=== PATIENT | male | born 1955 | race Hispanic/Latino ===

== ENCOUNTER 2017-12-19 10:27 | Inpatient (IN) | payer OTHER, SELFPAY ==
[~2017-12-19] VITALS: Ht 165.1 cm; Wt 73.3 kg
[2017-12-19 11:20] LABS: BASOPHILS % (AUTO) 0.4 % (0.0-5.0); HEMATOCRIT 31.9 % (42-54); MEAN CORPUSCULAR HEMOGLOBIN 35.7 pg (27.0-33.0); MEAN CORPUSCULAR HGB CONC 36.8 g/dL (32.0-36.0); MEAN CORPUSCULAR VOLUME 97.1 fL (79-99); MONOCYTES % (AUTO) 11.6 % (3.0-13.0); NUCLEATED RED BLOOD CELLS 0.1 % (0.0-0.19); PLATELET COUNT (AUTO) 128 K/uL (130-400); RED BLOOD CELL COUNT(AUTO) 3.29 MIL/uL (4.50-6.20); RED CELL DISTRIBUTION WIDTH 14.4 % (11.0-15.5)
[2017-12-19 11:31] LABS: CREATININE 1.7 mg/dL (0.5-1.5); POTASSIUM 3.9 mmol/L (3.5-5.1)
[2017-12-19 11:36] LABS: ALBUMIN 1.6 g/dL (3.5-5.0); BILIRUBIN,TOTAL 2.6 mg/dL (0.2-1.0); TOTAL PROTEIN, SERUM 6.9 g/dL (6.0-8.3)
[2017-12-19 12:01] LABS: INR 1.17 (0.85-1.15); PARTIAL THROMBOPLASTIN TIME 28.8 SEC (26.3-35.5); PROTHROMBIN TIME 11.9 SEC (9.6-11.6)
[2017-12-19] MEDS ORDERED: HYDRALAZINE HCL 20 MG/ML VIAL IV PRN (13:30)
[2017-12-19] MEDS ORDERED: ONDANSETRON HCL 4 MG/2 ML VIAL IV PRN (13:30)
[2017-12-19] MEDS: SPIRONOLACTONE 25 MG TAB PO SCH ×2 (13:30→20:28)
[2017-12-19] MEDS ORDERED: GUAIFENESIN-DM 200/20 MG 10 ML PO PRN (13:30)
[2017-12-19] MEDS: FUROSEMIDE 40 MG TABLET PO SCH ×2 (13:30→20:28)
[2017-12-19] MEDS ORDERED: ONDANSETRON HCL MDV 20ML 2 MG/ML VIAL IVP PRN (13:45)
[2017-12-19] MEDS ORDERED: MORPHINE SULFATE 4 MG/1ML SYG IVP PRN (13:45)
[2017-12-19] MEDS ORDERED: LACT10SO9 PO (15:43)
[2017-12-19] MEDS ORDERED: FURO40TA7 PO (15:43)
[2017-12-19] MEDS ORDERED: SPIR100T5 PO (15:43)
[2017-12-19 16:17] VITALS: BP 115/67
[2017-12-19] MEDS: LEVOFLOXACIN 500 MG/D5W 100 ML 100 ML IV SCH (17:14)
[2017-12-19 18:07] LABS: APPEARANCE BODY FLUID SLIGHTLY CLOUDY (CLEAR); SPECIMENTYPE,BODY FLUID ASCITES
[2017-12-19 18:08] LABS: BODY FLUID RBC 1680 /cu. mm.; BODY FLUID WBC 64 /cu. mm.; COLOR,BODY FLUID LT YELLOW (LT YELLOW); TOTAL VOLUME,BODY FLUID 90 mL
[2017-12-19 18:21] LABS: BF LYMPHOCYTE 88 %
[2017-12-19] MEDS: ALBUTEROL SULFATE 0.083% 2.5 MG/3 ML INH IH SCH ×2 (19:52→23:39)
[2017-12-19 20:00] VITALS: BP 100/62
[2017-12-19] MEDS: ALBUMIN (HUMAN) 25% 100 ML IV SCH (20:27)
[2017-12-19] MEDS: LACTULOSE 20 GM/30 ML UDCUP PO SCH (20:27)
[2017-12-19 23:45] VITALS: BP 96/54
[2017-12-20 00:25] LABS: APPEARANCE,URINE Clear (CLEAR); BILIRUBIN,URINE Negative (NEGATIVE); COLOR,URINE Dark Yellow (YELLOW); GLUCOSE, URINE (UA) Negative (NEGATIVE); KETONES,URINE Negative (NEGATIVE); LEUKOCYTE ESTERASE ,URINE Trace (NEGATIVE); NITRATE,URINE Negative (NEGATIVE); OCCULT BLOOD,URINE Large (NEGATIVE); PROTEIN,URINE Negative (NEGATIVE)
[2017-12-20] MEDS: PNEUMOCOCCAL VACCINE POLYVALENT 0.5 ML/VIAL [PPV] IM SCH (00:30)
[2017-12-20 00:39] LABS: BACTERIA,URINE None Seen /HPF (None Seen); MUCUS,URINE Rare LPF (None Seen); SQUAMOUS EPITHELIAL CELL,UR Rare /HPF (0-2); WBC,URINE 0-1 /HPF (0-1)
[2017-12-20 04:00] VITALS: BP 103/66
[2017-12-20 06:06] LABS: HEMATOCRIT 30.1 % (42-54); MEAN CORPUSCULAR HEMOGLOBIN 34.3 pg (27.0-33.0); MEAN CORPUSCULAR VOLUME 98.1 fL (79-99); PLATELET COUNT (AUTO) 113 K/uL (130-400); RED BLOOD CELL COUNT(AUTO) 3.07 MIL/uL (4.50-6.20); RED CELL DISTRIBUTION WIDTH 14.5 % (11.0-15.5); WHITE BLOOD COUNT (AUTO) 5.1 K/uL (4.8-10.8)
[2017-12-20] MEDS: ALBUTEROL SULFATE 0.083% 2.5 MG/3 ML INH IH SCH ×4 (06:10→23:47)
[2017-12-20 06:13] LABS: HEMOGLOBIN A1C 5.3 % (4.0-6.0)
[2017-12-20 06:33] LABS: ALBUMIN 1.8 g/dL (3.5-5.0); BILIRUBIN,DIRECT 0.5 mg/dL (0.0-0.3); BILIRUBIN,TOTAL 2.2 mg/dL (0.2-1.0); CREATININE 1.6 mg/dL (0.5-1.5); MAGNESIUM 1.9 mg/dL (1.80-2.40); POTASSIUM 4.3 mmol/L (3.5-5.1); TOTAL PROTEIN, SERUM 6.2 g/dL (6.0-8.3)
[2017-12-20 08:00] VITALS: BP 92/53
[2017-12-20] MEDS: PANTOPRAZOLE SODIUM 40 MG TABLET.DR PO SCH (09:39)
[2017-12-20] MEDS: FUROSEMIDE 40 MG TABLET PO SCH ×2 (09:39→20:29)
[2017-12-20] MEDS: LACTULOSE 20 GM/30 ML UDCUP PO SCH ×2 (09:39→20:28)
[2017-12-20] MEDS: SPIRONOLACTONE 25 MG TAB PO SCH ×2 (09:39→20:28)
[2017-12-20 11:00] VITALS: BP 90/59
[2017-12-20] MEDS: TRAMADOL HCL 50 MG TABLET PO PRN (11:23)
[2017-12-20] MEDS: ALBUMIN (HUMAN) 25% 100 ML IV SCH (13:30)
[2017-12-20] MEDS: LEVOFLOXACIN 500 MG/D5W 100 ML 100 ML IV SCH ×2 (14:52→19:42)
[2017-12-20 16:00] VITALS: BP 93/57
[2017-12-20 20:00] VITALS: BP 100/58
[2017-12-21] VITALS: BP 102/64
[2017-12-21] MEDS: PNEUMOCOCCAL VACCINE POLYVALENT 0.5 ML/VIAL [PPV] IM SCH (00:30)
[2017-12-21 03:54] VITALS: BP 102/68
[2017-12-21 04:59] LABS: HEMATOCRIT 29.6 % (42-54); MEAN CORPUSCULAR HEMOGLOBIN 36.3 pg (27.0-33.0); MEAN CORPUSCULAR VOLUME 98.1 fL (79-99); PLATELET COUNT (AUTO) 111 K/uL (130-400); RED BLOOD CELL COUNT(AUTO) 3.02 MIL/uL (4.50-6.20); RED CELL DISTRIBUTION WIDTH 14.1 % (11.0-15.5); WHITE BLOOD COUNT (AUTO) 6.2 K/uL (4.8-10.8)
[2017-12-21 05:07] LABS: CREATININE 1.6 mg/dL (0.5-1.5)
[2017-12-21] MEDS: ALBUTEROL SULFATE 0.083% 2.5 MG/3 ML INH IH SCH ×3 (06:41→18:43)
[2017-12-21 08:00] VITALS: BP_SYST 129; BP_SYST 95; BP_DIAS 59; BP_DIAS 72
[2017-12-21] MEDS: PANTOPRAZOLE SODIUM 40 MG TABLET.DR PO SCH (09:10)
[2017-12-21] MEDS: LACTULOSE 20 GM/30 ML UDCUP PO SCH (09:10)
[2017-12-21] MEDS: SPIRONOLACTONE 25 MG TAB PO SCH (09:10)
[2017-12-21] MEDS ORDERED: LACTULOSE 20 GM/30 ML UDCUP PO PRN (11:45)
[2017-12-21] MEDS ORDERED: LACTULOSE 20 GM/30 ML UDCUP PO SCH (11:45)
[2017-12-21 11:47] VITALS: BP 85/53
[2017-12-21] MEDS: ALBUMIN (HUMAN) 25% 100 ML IV SCH (12:44)
[2017-12-21] MEDS: TRAMADOL HCL 50 MG TABLET PO PRN (12:49)
[2017-12-21] MEDS: FUROSEMIDE 40 MG TABLET PO SCH (12:50)
[2017-12-21] MEDS ORDERED: LEVO500T2 PO (13:20)
[2017-12-21] MEDS ORDERED: FURO40TA7 PO (13:20)
[2017-12-21] MEDS ORDERED: TRAM50TA4 PO (13:20)
[2017-12-21 16:00] VITALS: BP 99/60
== END 2017-12-21 19:30 | disposition home or self-care (01) | DRG 432 ==
LOC: EDH 10:27 → EDHIP 10:28 → OBSVTOIN 10:28 → 3CH 15:07
PROVIDERS: ADMIT Internal Medicine Nephrology; ATTEND Internal Medicine Nephrology
PROC: 0W9G3ZZ Drainage of Peritoneal Cavity, Percutaneous Approach (ICD-10-PCS; principal; 2017-12-19)
DX: K70.31 Alcoholic cirrhosis of liver with ascites (principal); J18.9 Pneumonia, unspecified organism; J96.01 Acute respiratory failure with hypoxia; E43 Unspecified severe protein-calorie malnutrition; N18.3 Chronic kidney disease, stage 3 (moderate); D69.59 Other secondary thrombocytopenia; R73.9 Hyperglycemia, unspecified; D63.8 Anemia in other chronic diseases classified elsewhere; Z68.26 Body mass index [BMI] 26.0-26.9, adult
CPT/HCPCS: 36415; 49083; 71045; 80048; 80053; 80076; 81001; 82140; 82550; 83036; 83540; 83550; 83690; 83735; 84484; 85025; 85027; 85610; 85730; 87040; 87071; 87205; 87633; 89051; 93005; 94640; 94664; J1956; P9046

== ENCOUNTER 2017-12-27 13:51 | Emergency (ER) | payer OTHER, SELFPAY ==
[~2017-12-27 13:51] MED LIST: FURO40TA7 PO; LACT10SO9 PO; LEVO500T2 PO; SPIR100T5 PO; TRAM50TA4 PO
[2017-12-27 14:13] LABS: BASOPHILS % (AUTO) 0.9 % (0.0-5.0); HEMATOCRIT 34.1 % (42-54); MEAN CORPUSCULAR HEMOGLOBIN 34.2 pg (27.0-33.0); MEAN CORPUSCULAR HGB CONC 34.8 g/dL (32.0-36.0); MEAN CORPUSCULAR VOLUME 98.4 fL (79-99); MONOCYTES % (AUTO) 12.6 % (3.0-13.0); NEUTROPHILS % (AUTO) 68.5 % (40.0-77.0); NUCLEATED RED BLOOD CELLS 0.1 % (0.0-0.19); PLATELET COUNT (AUTO) 141 K/uL (130-400); RED BLOOD CELL COUNT(AUTO) 3.46 MIL/uL (4.50-6.20); RED CELL DISTRIBUTION WIDTH 14.5 % (11.0-15.5); WHITE BLOOD COUNT (AUTO) 6.9 K/uL (4.8-10.8)
[2017-12-27 14:28] LABS: CREATININE 1.6 mg/dL (0.5-1.5); POTASSIUM 3.8 mmol/L (3.5-5.1)
[2017-12-27 14:44] LABS: INR 1.15 (0.85-1.15); PARTIAL THROMBOPLASTIN TIME 30.6 SEC (26.3-35.5)
[2017-12-27 14:45] LABS: ALBUMIN 1.9 g/dL (3.5-5.0); BILIRUBIN,TOTAL 1.4 mg/dL (0.2-1.0); TOTAL PROTEIN, SERUM 7.2 g/dL (6.0-8.3)
[2017-12-27] MEDS ORDERED: ALBUMIN (HUMAN) 25% 200 ML IV ONE ×2 (18:16→18:30)
== END 2017-12-27 20:34 | disposition home or self-care (01) ==
LOC: EDH 13:51
DX: R18.8 Other ascites (principal); K74.60 Unspecified cirrhosis of liver; Z90.49 Acquired absence of other specified parts of digestive tract; Z98.890 Other specified postprocedural states
CPT/HCPCS: 36415; 49083; 80053; 85025; 85610; 85730; 96365; 96366; 99285; P9046

== ENCOUNTER 2018-01-03 11:33 | Emergency (ER) | payer OTHER, SELFPAY ==
[2018-01-03 12:34] LABS: BASOPHILS % (AUTO) 1.4 % (0.0-5.0); EOSINOPHILS % (AUTO) 6.9 % (0.0-8.0); HEMATOCRIT 29.8 % (42-54); LYMPHOCYTES % (AUTO) 17.4 % (21.0-51.0); MEAN CORPUSCULAR HEMOGLOBIN 34.4 pg (27.0-33.0); MEAN CORPUSCULAR HGB CONC 35.2 g/dL (32.0-36.0); MEAN CORPUSCULAR VOLUME 97.8 fL (79-99); MONOCYTES % (AUTO) 13.6 % (3.0-13.0); NEUTROPHILS % (AUTO) 60.7 % (40.0-77.0); NUCLEATED RED BLOOD CELLS 0.1 % (0.0-0.19); PLATELET COUNT (AUTO) 113 K/uL (130-400); RED BLOOD CELL COUNT(AUTO) 3.05 MIL/uL (4.50-6.20); RED CELL DISTRIBUTION WIDTH 14.2 % (11.0-15.5); WHITE BLOOD COUNT (AUTO) 4.7 K/uL (4.8-10.8)
[2018-01-03 12:46] LABS: CREATININE 1.4 mg/dL (0.5-1.5); POTASSIUM 4.1 mmol/L (3.5-5.1)
[2018-01-03 12:47] LABS: INR 1.18 (0.85-1.15); PROTHROMBIN TIME 12.3 SEC (9.6-11.6)
[2018-01-03 12:52] LABS: ALBUMIN 1.9 g/dL (3.5-5.0); BILIRUBIN,TOTAL 1.6 mg/dL (0.2-1.0); TOTAL PROTEIN, SERUM 6.5 g/dL (6.0-8.3)
[2018-01-03] MEDS ORDERED: LIDOCAINE HCL 1% 20 ML VIAL INJ SCH ×2 (16:45→17:15)
[2018-01-03] MEDS ORDERED: LIDOCAINE HCL 1% 20 ML VIAL ONE (16:52)
[2018-01-03] MEDS ORDERED: ALBUMIN (HUMAN) 25% 200 ML IV ONE (17:45)
[2018-01-03] MEDS ORDERED: ALBUMIN (HUMAN) 25% 100 ML IV ONE ×2 (18:26→18:27)
== END 2018-01-03 19:56 | disposition home or self-care (01) ==
LOC: EDH 11:33
DX: K70.31 Alcoholic cirrhosis of liver with ascites (principal); Z87.891 Personal history of nicotine dependence
CPT/HCPCS: 36415; 49083; 80053; 85025; 85610; 85730; 96365; 99285; P9046; P9047

== ENCOUNTER 2018-01-11 10:55 | Emergency (ER) | payer OTHER, SELFPAY ==
[2018-01-11 11:44] LABS: BASOPHILS % (AUTO) 0.6 % (0.0-5.0); EOSINOPHILS % (AUTO) 7.5 % (0.0-8.0); HEMATOCRIT 32.7 % (42-54); LYMPHOCYTES % (AUTO) 20.1 % (21.0-51.0); MEAN CORPUSCULAR HEMOGLOBIN 34.4 pg (27.0-33.0); MEAN CORPUSCULAR HGB CONC 35.1 g/dL (32.0-36.0); MONOCYTES % (AUTO) 9.7 % (3.0-13.0); NEUTROPHILS % (AUTO) 62.1 % (40.0-77.0); NUCLEATED RED BLOOD CELLS 0.2 % (0.0-0.19); PLATELET COUNT (AUTO) 141 K/uL (130-400); RED BLOOD CELL COUNT(AUTO) 3.34 MIL/uL (4.50-6.20); RED CELL DISTRIBUTION WIDTH 14.7 % (11.0-15.5); WHITE BLOOD COUNT (AUTO) 4.4 K/uL (4.8-10.8)
[2018-01-11 11:50] LABS: CREATININE 1.6 mg/dL (0.5-1.5); POTASSIUM 5.3 mmol/L (3.5-5.1)
[2018-01-11 11:55] LABS: ALBUMIN 2.4 g/dL (3.5-5.0); BILIRUBIN,TOTAL 1.4 mg/dL (0.2-1.0); TOTAL PROTEIN, SERUM 7.7 g/dL (6.0-8.3)
[2018-01-11 12:00] LABS: INR 1.17 (0.85-1.15); PROTHROMBIN TIME 12.2 SEC (9.6-11.6)
[2018-01-11] MEDS ORDERED: SODIUM POLYSTYRENE SULFONATE 15 GM/60 ML ML ONE (13:19)
== END 2018-01-11 15:40 | disposition home or self-care (01) ==
LOC: EDH 10:55
DX: K74.69 Other cirrhosis of liver (principal); R18.8 Other ascites; N18.9 Chronic kidney disease, unspecified; Z87.891 Personal history of nicotine dependence
CPT/HCPCS: 36415; 49083; 80053; 85025; 85610; 85730

== ENCOUNTER 2018-01-18 10:56 | Emergency (ER) | payer OTHER, SELFPAY ==
[2018-01-18 11:37] LABS: CREATININE 1.7 mg/dL (0.5-1.5); POTASSIUM 4.4 mmol/L (3.5-5.1)
[2018-01-18 11:40] LABS: EOSINOPHILS % (AUTO) 9.2 % (0.0-8.0); HEMATOCRIT 31.1 % (42-54); LYMPHOCYTES % (AUTO) 19.9 % (21.0-51.0); MEAN CORPUSCULAR HEMOGLOBIN 34.4 pg (27.0-33.0); MEAN CORPUSCULAR HGB CONC 35.4 g/dL (32.0-36.0); MEAN CORPUSCULAR VOLUME 97.2 fL (79-99); MONOCYTES % (AUTO) 8.4 % (3.0-13.0); NEUTROPHILS % (AUTO) 61.5 % (40.0-77.0); PLATELET COUNT (AUTO) 107 K/uL (130-400); RED BLOOD CELL COUNT(AUTO) 3.19 MIL/uL (4.50-6.20); RED CELL DISTRIBUTION WIDTH 14.2 % (11.0-15.5); WHITE BLOOD COUNT (AUTO) 4.6 K/uL (4.8-10.8)
[2018-01-18 11:42] LABS: ALBUMIN 2.1 g/dL (3.5-5.0); BILIRUBIN,TOTAL 1.4 mg/dL (0.2-1.0); TOTAL PROTEIN, SERUM 6.9 g/dL (6.0-8.3)
[2018-01-18 11:56] LABS: INR 1.13 (0.85-1.15); PARTIAL THROMBOPLASTIN TIME 30.3 SEC (26.3-35.5); PROTHROMBIN TIME 11.8 SEC (9.6-11.6)
[2018-01-18] MEDS ORDERED: ALBUMIN (HUMAN) 25% 200 ML IV SCH (13:00)
[2018-01-18] MEDS ORDERED: LIDOCAINE HCL 1% 20 ML VIAL ONE (14:51)
[2018-01-18 16:45] LABS: APPEARANCE BODY FLUID SLIGHTLY CLOUDY (CLEAR); BODY FLUID RBC 194 /cu. mm.; BODY FLUID WBC 75 /cu. mm.; COLOR,BODY FLUID YELLOW (LT YELLOW); SPECIMENTYPE,BODY FLUID ASCITES; TOTAL VOLUME,BODY FLUID 6400 mL
[2018-01-18 18:23] LABS: BF LYMPHOCYTE 59 %; BF MONOCYTE 5 %; BF OTHER CELLS 8
== END 2018-01-18 16:13 | disposition home or self-care (01) ==
LOC: EDH 10:56
DX: K70.31 Alcoholic cirrhosis of liver with ascites (principal); E72.29 Other disorders of urea cycle metabolism
CPT/HCPCS: 36415; 49083; 80053; 82140; 85025; 85610; 85730; 87071; 87205; 88108; 89051; 99285; P9046

== ENCOUNTER 2018-01-25 10:05 | Emergency (ER) | payer OTHER, SELFPAY ==
[2018-01-25] MEDS ORDERED: ONDANSETRON HCL MDV 20ML 2 MG/ML VIAL ONE (10:34)
[2018-01-25 10:35] LABS: BASOPHILS % (AUTO) 1.5 % (0.0-5.0); EOSINOPHILS % (AUTO) 8.9 % (0.0-8.0); LYMPHOCYTES % (AUTO) 20.9 % (21.0-51.0); MEAN CORPUSCULAR HEMOGLOBIN 34.2 pg (27.0-33.0); MEAN CORPUSCULAR HGB CONC 35.2 g/dL (32.0-36.0); MEAN CORPUSCULAR VOLUME 97.1 fL (79-99); MONOCYTES % (AUTO) 9.6 % (3.0-13.0); NEUTROPHILS % (AUTO) 59.1 % (40.0-77.0); PLATELET COUNT (AUTO) 133 K/uL (130-400); RED CELL DISTRIBUTION WIDTH 14.3 % (11.0-15.5); WHITE BLOOD COUNT (AUTO) 6.1 K/uL (4.8-10.8)
[2018-01-25 10:43] LABS: CREATININE 1.6 mg/dL (0.5-1.5); POTASSIUM 4.6 mmol/L (3.5-5.1)
[2018-01-25 10:48] LABS: ALBUMIN 2.3 g/dL (3.5-5.0); BILIRUBIN,TOTAL 1.4 mg/dL (0.2-1.0); TOTAL PROTEIN, SERUM 7.2 g/dL (6.0-8.3)
[2018-01-25 10:52] LABS: B-TYPE NATRIURETIC PEPTIDE 31 pg/mL (0-100)
[2018-01-25 12:22] LABS: INR 1.14 (0.85-1.15); PARTIAL THROMBOPLASTIN TIME 30.4 SEC (26.3-35.5); PROTHROMBIN TIME 11.9 SEC (9.6-11.6)
[2018-01-25] MEDS ORDERED: ALBUMIN (HUMAN) 25% 200 ML IV SCH (14:00)
[2018-01-25 14:39] LABS: APPEARANCE BODY FLUID CLEAR (CLEAR); COLOR,BODY FLUID LT YELLOW (LT YELLOW); SPECIMENTYPE,BODY FLUID ASCITES; TOTAL VOLUME,BODY FLUID 7600 mL
[2018-01-25 14:57] LABS: BODY FLUID RBC 200 /cu. mm.; BODY FLUID WBC 53 /cu. mm.
[2018-01-25 15:22] LABS: BF BASOPHIL 1 %; BF LYMPHOCYTE 36 %; BF MESOTHELIAL 2 %; BF MONOCYTE 43 %
== END 2018-01-25 15:59 | disposition home or self-care (01) ==
LOC: EDH 10:05
DX: R18.8 Other ascites (principal); R11.2 Nausea with vomiting, unspecified; R06.02 Shortness of breath; R53.1 Weakness; Z90.49 Acquired absence of other specified parts of digestive tract
CPT/HCPCS: 36415; 49083; 71045; 74018; 80053; 82140; 83880; 85025; 85610; 85730; 87071; 87205; 89051; 93005; 96365; 96366; 96375; 99285; P9046

== ENCOUNTER 2018-02-01 10:43 | Inpatient (IN) | payer OTHER, SELFPAY ==
[~2018-02-01] VITALS: Ht 165.1 cm; Wt 71.3 kg
[2018-02-01 11:12] LABS: BASOPHILS % (AUTO) 1.2 % (0.0-5.0); EOSINOPHILS % (AUTO) 9.4 % (0.0-8.0); HEMATOCRIT 32.4 % (42-54); LYMPHOCYTES % (AUTO) 18.2 % (21.0-51.0); MEAN CORPUSCULAR HEMOGLOBIN 35.8 pg (27.0-33.0); MEAN CORPUSCULAR HGB CONC 36.5 g/dL (32.0-36.0); MONOCYTES % (AUTO) 9.1 % (3.0-13.0); NEUTROPHILS % (AUTO) 62.1 % (40.0-77.0); PLATELET COUNT (AUTO) 136 K/uL (130-400); RED BLOOD CELL COUNT(AUTO) 3.31 MIL/uL (4.50-6.20); RED CELL DISTRIBUTION WIDTH 14.3 % (11.0-15.5); WHITE BLOOD COUNT (AUTO) 5.6 K/uL (4.8-10.8)
[2018-02-01 11:17] LABS: CREATININE 1.5 mg/dL (0.5-1.5); POTASSIUM 4.2 mmol/L (3.5-5.1)
[2018-02-01 11:22] LABS: ALBUMIN 2.4 g/dL (3.5-5.0); BILIRUBIN,TOTAL 1.9 mg/dL (0.2-1.0); TOTAL PROTEIN, SERUM 6.9 g/dL (6.0-8.3)
[2018-02-01] MEDS ORDERED: ONDANSETRON HCL 4 MG/2 ML VIAL ONE (11:29)
[2018-02-01 11:50] LABS: ALCOHOL, BLOOD < 3 mg/dL (0-10); LIPASE 523 U/L (114-286)
[2018-02-01 12:37] LABS: INR 1.18 (0.85-1.15); PARTIAL THROMBOPLASTIN TIME 31.2 SEC (26.3-35.5); PROTHROMBIN TIME 12.4 SEC (9.6-11.6)
[2018-02-01] MEDS ORDERED: ALBUMIN (HUMAN) 25% 100 ML IV ONE (15:00)
[2018-02-01] MEDS ORDERED: LIDOCAINE HCL 1% 20 ML VIAL ONE (15:32)
[2018-02-01 17:19] VITALS: BP 96/56
[2018-02-01] MEDS ORDERED: MORPHINE SULFATE 2 MG/ML 1ML SYG IVP PRN (18:00)
[2018-02-01] MEDS ORDERED: ONDANSETRON HCL MDV 20ML 2 MG/ML VIAL IVP PRN (18:00)
[2018-02-01 20:15] VITALS: BP 97/63
[2018-02-01 21:17] LABS: SPECIMENTYPE,BODY FLUID PARACENTESIS
[2018-02-01 21:18] LABS: APPEARANCE BODY FLUID SLIGHTLY CLOUDY (CLEAR); COLOR,BODY FLUID YELLOW (LT YELLOW); TOTAL VOLUME,BODY FLUID 6500 mL
[2018-02-01 21:19] LABS: BODY FLUID RBC 148 /cu. mm.; BODY FLUID WBC 79 /cu. mm.
[2018-02-01 21:34] LABS: BF LYMPHOCYTE 77 %; BF MONOCYTE 4 %; BF OTHER CELLS 2
[2018-02-01] MEDS: MIDODRINE HCL 5 MG TABLET PO SCH (23:01)
[2018-02-01] MEDS: ZOSYN 3.375GM+NS 50ML 50 ML IV SCH (23:01)
[2018-02-01] MEDS: ALBUMIN (HUMAN) 25% 100 ML IV SCH (23:01)
[2018-02-01 23:40] VITALS: BP 93/54
[2018-02-02 03:45] VITALS: BP 95/56
[2018-02-02 04:57] LABS: HEMATOCRIT 27.3 % (42-54); MEAN CORPUSCULAR HEMOGLOBIN 33.8 pg (27.0-33.0); MEAN CORPUSCULAR VOLUME 96.7 fL (79-99); NUCLEATED RED BLOOD CELLS 0.1 % (0.0-0.19); PLATELET COUNT (AUTO) 102 K/uL (130-400); RED BLOOD CELL COUNT(AUTO) 2.82 MIL/uL (4.50-6.20); RED CELL DISTRIBUTION WIDTH 14.2 % (11.0-15.5); WHITE BLOOD COUNT (AUTO) 4.6 K/uL (4.8-10.8)
[2018-02-02 05:03] LABS: APPEARANCE,URINE Clear (CLEAR); BILIRUBIN,URINE Negative (NEGATIVE); COLOR,URINE Dark Yellow (YELLOW); GLUCOSE, URINE (UA) Negative (NEGATIVE); KETONES,URINE Negative (NEGATIVE); LEUKOCYTE ESTERASE ,URINE Negative (NEGATIVE); NITRATE,URINE Negative (NEGATIVE); OCCULT BLOOD,URINE Moderate (NEGATIVE); PH,URINE 5.5 (5.0-8.0); PROTEIN,URINE Negative (NEGATIVE)
[2018-02-02 05:09] LABS: CREATININE 1.6 mg/dL (0.5-1.5); MAGNESIUM 1.8 mg/dL (1.80-2.40); PHOSPHORUS 3.2 mg/dL (2.5-4.9); POTASSIUM 3.9 mmol/L (3.5-5.1); URIC ACID 5.1 mg/dL (2.6-7.2)
[2018-02-02 05:30] LABS: BACTERIA,URINE Rare /HPF (None Seen); MUCUS,URINE Few LPF (None Seen); SQUAMOUS EPITHELIAL CELL,UR Few /HPF (0-2); WBC,URINE 0-1 /HPF (0-1)
[2018-02-02] MEDS: ALBUMIN (HUMAN) 25% 100 ML IV SCH ×3 (06:18→21:13)
[2018-02-02] MEDS: ZOSYN 3.375GM+NS 50ML 50 ML IV SCH ×2 (06:18→18:44)
[2018-02-02 08:54] VITALS: BP 85/51
[2018-02-02] MEDS: LACTULOSE 20 GM/30 ML UDCUP PO SCH ×3 (09:13→21:13)
[2018-02-02] MEDS: MIDODRINE HCL 5 MG TABLET PO SCH ×3 (09:13→21:13)
[2018-02-02 12:00] VITALS: BP 91/54
[2018-02-02 16:00] VITALS: BP 94/58
[2018-02-02 20:15] VITALS: BP 91/57
[2018-02-03 00:45] VITALS: BP 90/56
[2018-02-03 03:40] VITALS: BP 92/59
[2018-02-03 04:48] LABS: EOSINOPHILS % (AUTO) 10.5 % (0.0-8.0); HEMATOCRIT 26.3 % (42-54); LYMPHOCYTES % (AUTO) 21.3 % (21.0-51.0); MEAN CORPUSCULAR HEMOGLOBIN 34.9 pg (27.0-33.0); MEAN CORPUSCULAR HGB CONC 36.2 g/dL (32.0-36.0); MEAN CORPUSCULAR VOLUME 96.6 fL (79-99); MONOCYTES % (AUTO) 14.6 % (3.0-13.0); NEUTROPHILS % (AUTO) 52.6 % (40.0-77.0); PLATELET COUNT (AUTO) 89 K/uL (130-400); RED BLOOD CELL COUNT(AUTO) 2.73 MIL/uL (4.50-6.20); RED CELL DISTRIBUTION WIDTH 13.9 % (11.0-15.5); WHITE BLOOD COUNT (AUTO) 3.7 K/uL (4.8-10.8)
[2018-02-03 05:14] LABS: CREATININE 1.5 mg/dL (0.5-1.5); POTASSIUM 3.5 mmol/L (3.5-5.1)
[2018-02-03] MEDS: ALBUMIN (HUMAN) 25% 100 ML IV SCH ×2 (06:12→12:27)
[2018-02-03] MEDS: ZOSYN 3.375GM+NS 50ML 50 ML IV SCH ×2 (06:12→18:23)
[2018-02-03 08:00] VITALS: BP 95/60
[2018-02-03] MEDS: LACTULOSE 20 GM/30 ML UDCUP PO SCH ×3 (09:59→21:48)
[2018-02-03] MEDS: MIDODRINE HCL 5 MG TABLET PO SCH ×3 (10:00→21:47)
[2018-02-03 11:46] VITALS: BP 93/56
[2018-02-03 15:58] VITALS: BP 106/61
[2018-02-03 19:35] VITALS: BP 98/61
[2018-02-03] MEDS: FUROSEMIDE 40 MG TABLET PO SCH (21:48)
[2018-02-04] VITALS (7 sets, daily range): BP systolic 84–101; BP diastolic 57–68
[2018-02-04 05:26] LABS: BASOPHILS % (AUTO) 1.2 % (0.0-5.0); EOSINOPHILS % (AUTO) 9.4 % (0.0-8.0); HEMATOCRIT 27.3 % (42-54); LYMPHOCYTES % (AUTO) 20.1 % (21.0-51.0); MEAN CORPUSCULAR HEMOGLOBIN 34.1 pg (27.0-33.0); MEAN CORPUSCULAR VOLUME 97.3 fL (79-99); MONOCYTES % (AUTO) 14.1 % (3.0-13.0); NEUTROPHILS % (AUTO) 55.2 % (40.0-77.0); PLATELET COUNT (AUTO) 97 K/uL (130-400); RED CELL DISTRIBUTION WIDTH 14.2 % (11.0-15.5); WHITE BLOOD COUNT (AUTO) 4.4 K/uL (4.8-10.8)
[2018-02-04 05:43] LABS: ALBUMIN 3.5 g/dL (3.5-5.0); BILIRUBIN,DIRECT 0.5 mg/dL (0.0-0.3); BILIRUBIN,TOTAL 1.7 mg/dL (0.2-1.0); CREATININE 1.7 mg/dL (0.5-1.5); PHOSPHORUS 3.3 mg/dL (2.5-4.9); POTASSIUM 3.3 mmol/L (3.5-5.1); TOTAL PROTEIN, SERUM 6.3 g/dL (6.0-8.3)
[2018-02-04] MEDS: ZOSYN 3.375GM+NS 50ML 50 ML IV SCH ×2 (06:32→19:27)
[2018-02-04] MEDS: MIDODRINE HCL 5 MG TABLET PO SCH ×3 (08:12→20:41)
[2018-02-04] MEDS: LACTULOSE 20 GM/30 ML UDCUP PO SCH ×3 (08:12→20:42)
[2018-02-04] MEDS: SPIRONOLACTONE 25 MG TAB PO SCH (08:12)
[2018-02-04] MEDS: FUROSEMIDE 40 MG TABLET PO SCH ×2 (08:13→20:42)
[2018-02-04 11:07] LABS: INR 1.31 (0.85-1.15); PARTIAL THROMBOPLASTIN TIME 35.7 SEC (26.3-35.5); PROTHROMBIN TIME 13.7 SEC (9.6-11.6)
[2018-02-05 00:20] VITALS: BP 101/62
[2018-02-05 04:30] VITALS: BP 91/58
[2018-02-05] MEDS: ZOSYN 3.375GM+NS 50ML 50 ML IV SCH ×2 (06:44→17:23)
[2018-02-05 08:00] VITALS: BP 101/61
[2018-02-05] MEDS: MIDODRINE HCL 5 MG TABLET PO SCH ×3 (10:07→20:59)
[2018-02-05] MEDS: LACTULOSE 20 GM/30 ML UDCUP PO SCH ×3 (10:07→20:59)
[2018-02-05] MEDS: SPIRONOLACTONE 25 MG TAB PO SCH (10:07)
[2018-02-05] MEDS: FUROSEMIDE 40 MG TABLET PO SCH ×2 (10:07→20:59)
[2018-02-05 11:00] VITALS: BP 97/62
[2018-02-05] MEDS ORDERED: ALBUMIN (HUMAN) 25% 50 ML IV SCH (13:00)
[2018-02-05 16:00] VITALS: BP 105/68
[2018-02-05] MEDS ORDERED: POTASSIUM CHLORIDE 20 MEQ ERTAB PO PRN (17:00)
[2018-02-05] MEDS ORDERED: POTASSIUM CHLORIDE 20MEQ/100ML 100 ML IV PRN (17:00)
[2018-02-05] MEDS ORDERED: LIDOCAINE HCL-MPF 1% 2ML VIAL IVP PRN (17:00)
[2018-02-05] MEDS ORDERED: POTASSIUM CHLORIDE 10% ELIXIR 20 MEQ/15 ML UDCUP PO PRN (17:00)
[2018-02-05 19:48] VITALS: BP 100/65
[2018-02-06] VITALS (9 sets, daily range): BP systolic 80–112; BP diastolic 50–67
[2018-02-06] MEDS: ZOSYN 3.375GM+NS 50ML 50 ML IV SCH (05:10)
[2018-02-06 07:31] LABS: EOSINOPHILS % (AUTO) 9.7 % (0.0-8.0); HEMATOCRIT 27.5 % (42-54); LYMPHOCYTES % (AUTO) 21.4 % (21.0-51.0); MEAN CORPUSCULAR HEMOGLOBIN 34.1 pg (27.0-33.0); MEAN CORPUSCULAR HGB CONC 35.3 g/dL (32.0-36.0); MEAN CORPUSCULAR VOLUME 96.8 fL (79-99); MONOCYTES % (AUTO) 14.3 % (3.0-13.0); NEUTROPHILS % (AUTO) 53.6 % (40.0-77.0); PLATELET COUNT (AUTO) 99 K/uL (130-400); RED BLOOD CELL COUNT(AUTO) 2.84 MIL/uL (4.50-6.20); RED CELL DISTRIBUTION WIDTH 14.2 % (11.0-15.5); WHITE BLOOD COUNT (AUTO) 4.6 K/uL (4.8-10.8)
[2018-02-06 07:42] LABS: CREATININE 1.8 mg/dL (0.5-1.5); POTASSIUM 3.6 mmol/L (3.5-5.1)
[2018-02-06] MEDS: LACTULOSE 20 GM/30 ML UDCUP PO SCH ×2 (08:45→14:00)
[2018-02-06] MEDS: SPIRONOLACTONE 25 MG TAB PO SCH (08:45)
[2018-02-06] MEDS: MIDODRINE HCL 5 MG TABLET PO SCH ×2 (08:46→15:44)
[2018-02-06] MEDS: FUROSEMIDE 40 MG TABLET PO SCH (08:46)
[2018-02-06] MEDS ORDERED: ALBUMIN (HUMAN) 25% 100 ML IV ONE (16:45)
== END 2018-02-06 16:25 | disposition home or self-care (01) | DRG 432 ==
LOC: EDH 10:43 → OBSVTOIN 10:44 → EDHIP 10:44 → 3DH 16:19
PROVIDERS: ADMIT Internal Medicine Nephrology; ATTEND Internal Medicine Nephrology
PROC: 0W9G3ZZ Drainage of Peritoneal Cavity, Percutaneous Approach (ICD-10-PCS; principal; 2018-02-01)
DX: K70.31 Alcoholic cirrhosis of liver with ascites (principal); K85.90 Acute pancreatitis without necrosis or infection, unspecified; E43 Unspecified severe protein-calorie malnutrition; N17.9 Acute kidney failure, unspecified; D69.6 Thrombocytopenia, unspecified; K72.90 Hepatic failure, unspecified without coma; N18.3 Chronic kidney disease, stage 3 (moderate); D64.9 Anemia, unspecified; F10.10 Alcohol abuse, uncomplicated; R80.9 Proteinuria, unspecified; I12.9 Hypertensive chronic kidney disease with stage 1 through stage 4 chronic kidney disease, or unspecified chronic kidney disease; Z87.01 Personal history of pneumonia (recurrent); Z99.2 Dependence on renal dialysis; Z90.49 Acquired absence of other specified parts of digestive tract; Z68.26 Body mass index [BMI] 26.0-26.9, adult
CPT/HCPCS: 36415; 49083; 76770; 80048; 80053; 80076; 81001; 82140; 83690; 83735; 84100; 84550; 85025; 85027; 85610; 85730; 87071; 87205; 89051; G0480; J2405; J2543; P9046

== ENCOUNTER 2018-02-15 10:38 | Emergency (ER) | payer OTHER, SELFPAY ==
[~2018-02-15 10:38] MED LIST changes: -LEVO500T2 PO; -TRAM50TA4 PO
== END 2018-02-15 11:52 | disposition home or self-care (01) ==
LOC: EDH 10:38
DX: R18.8 Other ascites (principal); K74.60 Unspecified cirrhosis of liver
CPT/HCPCS: 99281